=== PATIENT | male | born 1990 | race African-American/Black ===

== ENCOUNTER 2016-08-08 23:57 | Emergency (ER) | payer BC ==
[~2016-08-08] VITALS: Ht 198.1 cm; Wt 113.4 kg
[~2016-08-08 23:57] MED LIST: OFLO5DRO OS
[2016-08-09 00:55] VITALS: BP 157/91
[2016-08-09] MEDS ORDERED: BENZ100C PO (01:18)
[2016-08-09] MEDS ORDERED: GUAI600T38 PO (01:18)
--- NOTE | 2016-08-09 01:19 | PHYS DOC ---
Past Medical History Past Medical History: No Pertinent History Past Surgical History: No Surgical History Alcohol Use: None Drug Use: None Adult General Chief Complaint Chief Complaint: COUGH HPI HPI Patient is a 25 year old male who presents with sore throat, cough, congestion for 3-4 days. Denies fever. Reports had same symptoms last week. Tried over the counter NyQuil without relief. Denies headache, n/v, shortness of air or medical problems Review of Systems Review of Systems Constitutional: Denies fever or chills Eyes: Denies change in visual acuity, redness, or eye pain HENT: Nasal cognestion and sore throat 3 days Respiratory: Denies shortness of breath. Cough three days Cardiovascular: No additional information not addressed in HPI [] GI: Denies abdominal pain, nausea, vomiting, bloody stools or diarrhea : Denies dysuria or hematuria Musculoskeletal: Denies back pain or joint pain Integument: Denies rash or skin lesions Neurologic: Denies headache, focal weakness or sensory changes [] Endocrine: Denies polyuria or polydipsia [] Allergies Allergies Allergies Coded Allergies Type Severity Reaction Last Updated Verified No Known Drug Allergies 07/03/16 No Physical Exam Physical Exam Constitutional: Well developed, well nourished, no acute distress, non-toxic appearance. HENT: Normocephalic, atraumatic, bilateral external ears normal, oropharynx moist, no oral exudates, nose normal. Bilateral tonsils erythematous without exudate. Eyes: PERRLA, EOMI, conjunctiva normal, no discharge. Neck: Normal range of motion, no tenderness, supple, no stridor. Cardiovascular:Heart rate regular rhythm, no murmur Lungs & Thorax: Bilateral breath sounds clear to auscultation [] Abdomen: Bowel sounds normal, soft, no tenderness, no masses, no pulsatile masses. [] Skin: Warm, dry, no erythema, no rash. [] Back: No tenderness, no CVA tenderness. [] Extremities: No tenderness, no cyanosis, no clubbing, ROM intact, no edema. [] Neurologic: Alert and oriented X 3, normal motor function, normal sensory function, no focal deficits noted. [] Psychologic: Affect normal, judgement normal, mood normal. [] Current Patient Data Vital Signs Vital Signs Date Time Temp Pulse Resp B/P Pulse Ox O2 Delivery O2 Flow Rate FiO2 08/09/16 00:55 98.6 84 20 98 Room Air 98.6 EKG EKG [] Radiology/Procedures Radiology/Procedures [] Impressions: 1. Viral illness Course & Med Decision Making Course & Med Decision Making Pertinent Labs and Imaging studies reviewed. (See chart for details) [] Dragon Disclaimer Dragon Disclaimer This electronic medical record was generated, in whole or in part, using a voice recognition dictation system. Departure Departure Impression: Primary Impression: Viral illness Disposition: HOME, SELF-CARE Condition: STABLE Referrals: NO PCP (PCP) Patient Instructions: Viral Infections, [id number], Viral Pharyngitis Additional Instructions: 1. Take Ibuprofen as directed for inflammation 2. Take medications as prescribed. 3. Follow up with Primary doctor in 1-2 days 4. Return if problems or concerns. Scripts Guaifenesin (Mucinex)600 Mg Tablet.er1 Tab PO BID #14 TAB Prov:LUCI HOANG APRN 08/09/16 Benzonatate (Tessalon Perle)100 Mg [id number] Mg PO TID PRN COUGH #20 CAP Prov:LUCI HOANG APRN 08/09/16 LUCI HOANG APRN Aug 09, 2016 01:19
== END 2016-08-09 02:06 | disposition home or self-care (01) ==
LOC: ER 08-09 00:12
DX: B34.9 Viral infection, unspecified (principal); J02.9 Acute pharyngitis, unspecified; R05 Cough; R09.81 Nasal congestion
CPT/HCPCS: 99283